=== PATIENT | male | born 1935 | race Caucasian/White ===

== ENCOUNTER 2024-10-12 17:19 | Inpatient (IN) | payer MEDICARE, BC ==
[~2024-10-12] VITALS: Ht 180.3 cm; Wt 64.0 kg
[2024-10-12] MEDS: IV NS 0.9% 500 ML BAG IV ONE (18:00)
[2024-10-12 18:07] LABS: BASOPHILS % (AUTO) 0.3 % (0.0-2.0); EOSINOPHILS % (AUTO) 0.1 % (0.0-6.0); HEMATOCRIT 32 % (39-51); HEMOGLOBIN 10.3 g/dL (13.5-17.5); LYMPHOCYTES # (AUTO) 1.1 K/uL (0.8-4.8); LYMPHOCYTES % (AUTO) 9.9 % (20.0-44.0); MEAN CORPUSCULAR HEMOGLOBIN 26 PG (26.0-33.0); MEAN CORPUSCULAR HGB CONC 32 g/dl (31.0-36.0); MEAN CORPUSCULAR VOLUME 79 fL (80-96); MONOCYTES # (AUTO) 0.5 K/uL (0.1-1.30); MONOCYTES % (AUTO) 4.6 % (2.0-12.0); NEUTROPHILS # (AUTO) 9.4 K/uL (1.8-8.9); NEUTROPHILS % (AUTO) 85.1 % (43.0-81.0); PLATELET COUNT (AUTO) 351 K/uL (150-450); RED BLOOD CELL COUNT(AUTO) 4.03 MIL/uL (4.5-6.0); RED CELL DISTRIBUTION WIDTH 18.3 % (11.5-15.0); WHITE BLOOD COUNT (AUTO) 11.1 K/uL (4.3-11.0)
[2024-10-12 18:15] LABS: CALCIUM, SERUM 8.5 mg/dL (8.5-10.1); CARBON DIOXIDE 28 mmol/L (21-32); CHLORIDE 101 mmol/L (98-107); CREATININE 0.9 mg/dL (0.6-1.3); GLUCOSE 132 mg/dL (74-106); POTASSIUM 3.9 mmol/L (3.5-5.1); SODIUM SERUM 133 mmol/L (136-145); UREA NITROGEN, BLOOD 10 mg/dL (7-18)
[2024-10-12 18:27] LABS: NT-PRO BNP 3057 pg/mL (0-125)
[2024-10-12] MEDS ORDERED: APIX5TAB PO (19:07)
[2024-10-12] MEDS ORDERED: MIDO2.5T PO (19:07)
[2024-10-12] MEDS ORDERED: LATA2.5D15 EACHEYE (19:07)
[2024-10-12] MEDS ORDERED: LEVO100T9 PO (19:07)
[2024-10-12] MEDS ORDERED: PANT40TA49 PO (19:07)
[2024-10-12] MEDS ORDERED: BRIM5DRO2 RIGHTEYE (19:07)
[2024-10-12] MEDS ORDERED: VIT1CAPS44 PO (19:07)
[2024-10-12] MEDS ORDERED: METO25TA4 PO (19:07)
[2024-10-12] MEDS ORDERED: ROSU20TA2 PO (19:07)
[2024-10-12 22:52] LABS: APPEARANCE,URINE CLEAR (CLEAR); BILIRUBIN,URINE NEGATIVE (NEGATIVE); BLOOD, URINE 1+ Ery/uL (NEGATIVE); COLOR,URINE YELLOW (YELLOW); KETONES,URINE 2+ mg/dL (NEGATIVE); LEUKOCYTE ESTERASE ,URINE NEGATIVE (NEGATIVE); NITRITE, URINE NEGATIVE (NEGATIVE); PH,URINE 5.5 (5.0-8.0); PROTEIN,URINE NEGATIVE (NEGATIVE); UGLUCOSE 3+ mg/dL (NEGATIVE); UROBILINOGEN,URINE 0.2 EU/dL (0.2)
[2024-10-12] MEDS: CEFTRIAXONE 1GM BAG (ER ONLY) 50 ML IV ONE (23:05)
[2024-10-12] MEDS ORDERED: CEFTRIAXONE 1GM BAG (ER ONLY) 50 ML IV ONE (23:07)
[2024-10-12] MEDS: AZITHROMYCIN 500 MG in IV D5W 250 ML IV ONE (23:10)
[2024-10-12 23:14] LABS: ADD URINE CULTURE YES; BACTERIA,URINE 1+ /HPF (None Seen); RBC,URINE 0-2 /HPF (0-2); SQUAMOUS EPITHELIAL CELL,UR 0-2 /HPF (None Seen); WBC,URINE 0-2 /HPF (0-3)
[2024-10-12] MEDS ORDERED: AZITHROMYCIN 500 MG VIAL ONE (23:18)
[2024-10-13] VITALS: BP 104/68; TEMP 98.2; O2SAT 98
[2024-10-13] MEDS ORDERED: MIDODRINE HCL 2.5 MG TABLET PO PRN
[2024-10-13] MEDS ORDERED: ONDANSETRON HCL/PF 4 MG/2 ML VIAL IVP PRN
[2024-10-13] MEDS ORDERED: MAGNESIUM HYDROXIDE 30 ML UDC PO PRN
[2024-10-13] MEDS ORDERED: Z GUARD REMEDY 4 OZ OINT TP PRN
[2024-10-13] MEDS ORDERED: ACETAMINOPHEN 325 MG TABLET PO PRN
[2024-10-13] MEDS ORDERED: VANCOMYCIN 1 GM /D5W 250 ML PB IV ONE (00:32)
[2024-10-13] MEDS: VANCOMYCIN 1 GM in IV D5W 250ml IV ONE (00:52)
[2024-10-13] MEDS ORDERED: CEFEPIME 1 GM VIAL ONE (00:58)
[2024-10-13] MEDS: CEFEPIME 2 GM in IV D5W 100 ML IV SCH (01:57)
[2024-10-13 04:00] VITALS: BP 119/64; TEMP 98.1; O2SAT 98
[2024-10-13 07:19] LABS: BASOPHILS % (AUTO) 0.3 % (0.0-2.0); EOSINOPHILS # (AUTO) 0.1 K/uL (0.0-0.7); EOSINOPHILS % (AUTO) 1.3 % (0.0-6.0); HEMATOCRIT 32 % (39-51); HEMOGLOBIN 10.4 g/dL (13.5-17.5); LYMPHOCYTES # (AUTO) 3.1 K/uL (0.8-4.8); LYMPHOCYTES % (AUTO) 30.9 % (20.0-44.0); MEAN CORPUSCULAR HEMOGLOBIN 26 PG (26.0-33.0); MEAN CORPUSCULAR HGB CONC 33 g/dl (31.0-36.0); MEAN CORPUSCULAR VOLUME 80 fL (80-96); MONOCYTES # (AUTO) 0.8 K/uL (0.1-1.30); MONOCYTES % (AUTO) 7.7 % (2.0-12.0); NEUTROPHILS % (AUTO) 59.8 % (43.0-81.0); PLATELET COUNT (AUTO) 342 K/uL (150-450); RED BLOOD CELL COUNT(AUTO) 3.93 MIL/uL (4.5-6.0)
[2024-10-13] MEDS ORDERED: MIDODRINE HCL (5MG) 5 MG TABLET PO PRN (07:30)
[2024-10-13 07:53] LABS: CALCIUM, SERUM 8.7 mg/dL (8.5-10.1); CREATININE 0.9 mg/dL (0.6-1.3); MAGNESIUM 1.9 mg/dL (1.8-2.4); POTASSIUM 3.8 mmol/L (3.5-5.1)
[2024-10-13 08:00] VITALS: BP 103/70; TEMP 97.5; O2SAT 94
[2024-10-13] MEDS: LEVOTHYROXINE SODIUM 100 MCG TABLET PO SCH (08:13)
[2024-10-13] MEDS: PANTOPRAZOLE 40 MG TABLET.DR PO SCH (08:13)
[2024-10-13 08:15] LABS: THYROID STIMULATING HORMONE 0.83 uIU/mL (0.358-3.74)
[2024-10-13] MEDS ORDERED: APIXABAN 5 MG TABLET PO SCH (09:00)
[2024-10-13] MEDS ORDERED: TIMOLOL RIGHTEYE SCH (09:00)
[2024-10-13] MEDS ORDERED: [UNRECOGNIZED DRUG - OTHER] RIGHTEYE SCH (09:00)
[2024-10-13] MEDS ORDERED: BRIMONIDINE TARTRATE RIGHTEYE SCH (09:00)
[2024-10-13] MEDS: ATORVASTATIN 40 MG TABLET PO SCH (09:26)
[2024-10-13] MEDS: APIXABAN 5 MG TABLET PO SCH (09:27)
[2024-10-13] MEDS ORDERED: IV NS 0.9% 1,000 ML IV PRN (09:30)
[2024-10-13 12:00] VITALS: BP 108/67; TEMP 97; O2SAT 98
[2024-10-13] MEDS: VANCOMYCIN 750 MG in IV D5W 250 ML IV SCH (12:24)
[2024-10-13] MEDS ORDERED: SOD FERRIC GLUC 125 MG in IV NS 0.9% 100 ML IV SCH (14:00)
[2024-10-13] MEDS ORDERED: CEFEPIME 2 GM in IV D5W 100 ML IV SCH (14:00)
[2024-10-13] MEDS ORDERED: METOPROLOL SUCCINATE 25 MG TAB.SR.24H PO SCH (18:00)
[2024-10-13] MEDS ORDERED: LATANOPROST EYE DROP 0.005% 2.5 ML BOTTLE EACHEYE SCH (22:00)
== END 2024-10-13 14:40 | disposition home or self-care (01) | DRG 918 ==
LOC: ER 17:55 → TELE1 23:31
PROVIDERS: ADMIT Nurse Practitioner Family
DX: T88.59XA Other complications of anesthesia, initial encounter (principal); E87.1 Hypo-osmolality and hyponatremia; R62.7 Adult failure to thrive; I25.10 Atherosclerotic heart disease of native coronary artery without angina pectoris; I48.91 Unspecified atrial fibrillation; Z20.822 Contact with and (suspected) exposure to COVID-19; Z95.1 Presence of aortocoronary bypass graft; Z85.118 Personal history of other malignant neoplasm of bronchus and lung; Z90.2 Acquired absence of lung [part of]; Z79.01 Long term (current) use of anticoagulants; Z79.890 Hormone replacement therapy; Z79.899 Other long term (current) drug therapy; D50.9 Iron deficiency anemia, unspecified; E78.5 Hyperlipidemia, unspecified; Z87.891 Personal history of nicotine dependence; Z92.3 Personal history of irradiation; Y83.8 Other surgical procedures as the cause of abnormal reaction of the patient, or of later complication, without mention of misadventure at the time of the procedure; Y92.89 Other specified places as the place of occurrence of the external cause
CPT/HCPCS: 36415; 71045-TC; 80048-TC; 80061-TC; 81001; 82607-TC; 82728-TC; 83540-TC; 83605-TC; 83735-TC; 83880; 84100-TC; 84443-TC; 84484-TC; 85025-TC; 87040-TC; 87086-TC; 97116-TC; 97530-TC; A4223; G0378; J0456; J0692; J0696; J2916; J3370; J3371; J7030; J7040; J7050; J7060